=== PATIENT | male | born 1970 | race Caucasian/White ===

== ENCOUNTER 2017-07-22 22:09 | Emergency (ER) | payer SELFPAY ==
[~2017-07-22] VITALS: Ht 177.8 cm; Wt 81.5 kg
[2017-07-22 22:30] VITALS: BP 149/61; PULSE 72; RESP 16; TEMP 98.6; O2SAT 100
[2017-07-22] MEDS ORDERED: TETANUS/DIPHTHERIA TOXOID ADULT 0.5 ML VIAL IM ONE (23:15)
--- NOTE | 2017-07-22 23:16 | PD ---
HPI Chief Complaint: Laceration/Skin Injury Time Seen by Provider: 22:59 Travel History International Travel<30 days: No Contact w/Intl Traveler<30days: No Traveled to known affect area: No History of Present Illness HPI 46-year-old right-hand dominant white male presents emergency department with complaints of left hand lacerations from putting his hand in the fan of his truck. He states that he was working under the [employer] when he accidentally put his hand into the fan. He sustained lacerations to his ring finger middle finger. He denies any numbness or tingling. Pain is moderate. Worse with movement. No alleviating factors. PFSH Past Medical History Medical History: Denies Significant Hx Tetanus Vaccination: > 5 Years Influenza Vaccination: Yes Past Surgical History Surgical History: No Previous Surgery Social History Alcohol Use: No Tobacco Use: Yes (05/25 PPD) Substance Use: No Allergies-Medications (Allergen,Severity, Reaction): Coded Allergies: No Known Drug Allergies (Verified Allergy, Unknown, 07/22/17) Reported Meds & Prescriptions Reported Meds & Active Scripts Active No Active Prescriptions or Reported Medications Review of Systems Except as stated in HPI: all other systems reviewed are Neg Physical Exam Narrative GENERAL: This is a well-nourished, well-developed patient, in no apparent distress. SKIN: No rashes, ecchymoses or lesions. Warm and dry. HEAD: Atraumatic. Normocephalic. EYES: PERRL, EOMI, no discharge or injection. No scleral icterus. EARS: Clear NOSE: Nasal turbinates appear normal. THROAT: Mucosa pink and moist. Airway patent. NECK: Trachea midline. supple, moves head freely. LUNGS: Clear to auscultation. CV: Regular in rhythm. ABDOMEN: Soft nontender. EXT: No clubbing cyanosis or edema. Patient has a laceration to the distal volar pad of the left middle finger distal phalanx that goes into the subcutaneous tissues but I do not see any obvious tendon, nerve or bone injury. 1.8 cm. There is also a laceration involving the left ring finger volar pad distal phalanx. This too does not go into the bone, tendon or neurovascular structures. 1.2 cm Data Data Last Documented VS Vital Signs Date Time Temp Pulse Resp B/P (MAP) Pulse Ox O2 Delivery O2 Flow Rate FiO2 07/22/17 22:30 98.6 72 16 149/61 (90) 100 Orders Orders Hand, Complete ([id number]) (07/22/17 23:02) Tetanus/Diphtheria Tox Adult (Tetanus/Di (07/22/17 23:15) MDM Medical Decision Making Medical Screen Exam Complete: Yes Emergency Medical Condition: Yes Medical Record Reviewed: Yes Interpretation(s) Left hand: Negative acute fracture. Differential Diagnosis MDM: High Differential diagnoses: Fracture, sprain, strain, dislocation, contusion, neurovascular injury Narrative Course Patient's lacerations are closed with sutures. Procedures Procedure Narrative LACERATION LOCATION: Left middle finger volar distal phalanx LENGTH: 1.8 cm NUMBER OF STITCHES/ERIC: 6 REPAIR: The area of the laceration was prepped with Betadine and sterilely draped. The laceration was infiltrated with 1% lidocaine with 0.5% Marcaine digital block]. The wound was copiously irrigated and explored without evidence of foreign body, tendon injury or neurovascular injury. The wound was closed using 5-0 Prolene. This was a simple single layer repair. A sterile dressing was applied. The patient was advised to keep the dressing clean and dry. Patient tolerated the procedure well. LACERATION LOCATION: Left ring finger volar distal phalanx LENGTH: 1.2 cm NUMBER OF STITCHES/ERIC:3 REPAIR: The area of the laceration was prepped with Betadine and sterilely draped. The laceration was infiltrated with 1% lidocaine with 0.5% Marcaine digital block]. The wound was copiously irrigated and explored without evidence of foreign body, tendon injury or neurovascular injury. The wound was closed using 5-0 Prolene. This was a simple single layer repair. A sterile dressing was applied. The patient was advised to keep the dressing clean and dry. Patient tolerated the procedure well. Diagnosis Primary Impression: Left middle finger laceration Additional Impression: Left ring finger laceration Patient Instructions: General Instructions Additional Instructions: Rest. Elevation. Tylenol and Advil for pain. Daily wound care with soap, water, Neosporin. Sutures out in 12 days. Return to the ER if any problems. Scripts No Active Prescriptions or Reported Meds Disposition: 01 DISCHARGE HOME Condition: Stable Curry Cota Jul 22, 2017 23:16
--- NOTE | 2017-07-22 23:33 | RADRPT ---
EXAM DATE/TIME: 07/22/2017 23:11 [facility] COMPARISON: No previous studies available for comparison. INDICATIONS : Pt caught hand in fan belt of car. Laceration to palm and 2nd digit MEDICAL HISTORY : None. SURGICAL HISTORY : None. ENCOUNTER: Initial ACUITY: 1 day PAIN SCORE: 8/10 LOCATION: Left Hand FINDINGS: Three view examination of the left hand demonstrates no soft tissue swelling, dislocation, or fractur e. The carpal bones appear intact. The interphalangeal and metacarpophalangeal joints are intact. Bony mineralization is normal. No radiopaque foreign bodies. Laceration of the soft tissues of the distal 2nd digit. CONCLUSION: Osseous structures of the hand are radiographically intact. Manjeet Calloway MD on July 22, 2017 at 23:31 Board Certified Radiologist. This report was verified electronically.
== END 2017-07-23 00:04 | disposition home or self-care (01) ==
LOC: NEPD 22:09
DX: S61.213A Laceration without foreign body of left middle finger without damage to nail, initial encounter (principal); S61.215A Laceration without foreign body of left ring finger without damage to nail, initial encounter; W45.8XXA Other foreign body or object entering through skin, initial encounter; Y93.89 Activity, other specified; Y92.812 Truck as the place of occurrence of the external cause; Z23 Encounter for immunization
CPT/HCPCS: 12002; 73130; 90471; 90714